=== PATIENT | female | born 1945 ===

== ENCOUNTER 2020-07-03 07:18 | Outpatient (CLI) | payer OTHER ==
[~2020-07-03 07:18] MED LIST: CEFADROXIL500 MG PO; LEVAQUIN750 MG PO; PRELONE15 MG/5 ML PO; ROBAFEN100 MG/5 M PO; TESSALON PERLE100 M1 PO
== END 2020-07-03 07:30 | disposition home or self-care (01) ==
LOC: MRI 07:18
PROVIDERS: ATTEND Physical Medicine & Rehabilitation
DX: S76.811A Strain of other specified muscles, fascia and tendons at thigh level, right thigh, initial encounter (principal)
CPT/HCPCS: 73718

== ENCOUNTER 2022-08-11 08:55 | Outpatient (CLI) | payer OTHER | END 2022-08-11 09:01 | disposition home or self-care (01) | LOC: SONOGRAMA 08:55 | PROVIDERS: ATTEND Specialist | DX: J44.9 Chronic obstructive pulmonary disease, unspecified (principal); R05.3 Chronic cough; J44.1 Chronic obstructive pulmonary disease with (acute) exacerbation; I71.40 Abdominal aortic aneurysm, without rupture, unspecified ==

== ENCOUNTER 2023-03-25 07:07 | Outpatient (CLI) | payer OTHER | END 2023-03-25 07:13 | disposition home or self-care (01) | LOC: TOM 07:07 | PROVIDERS: ATTEND Urology | DX: R31.29 Other microscopic hematuria (principal); F17.200 Nicotine dependence, unspecified, uncomplicated | CPT/HCPCS: 74177; Q9965 ==

== ENCOUNTER 2025-02-12 11:09 | Outpatient (CLI) | payer OTHER | END 2025-02-12 11:15 | disposition home or self-care (01) | LOC: RAD 11:09 | PROVIDERS: ATTEND Physical Medicine & Rehabilitation | DX: M25.562 Pain in left knee (principal); M25.561 Pain in right knee ==